=== PATIENT | female | born 1990 | race Caucasian/White ===

== ENCOUNTER 2017-01-03 19:00 | Emergency (ER) | payer MEDICAID ==
[~2017-01-03] VITALS: Ht 157.5 cm; Wt 111.1 kg
[~2017-01-03 19:00] MED LIST: MOTRIN400 MG PO; NOMEDS; OXYCODONE 5MG TA5 MG PO; PERCOCET 5/3251 EACH PO; PREDNISONE 20MG20 MG PO; PRENATAL PLUS1 TA1 PO; RANITIDINE 150150 MG PO; SENOKOT S PO; TESSALON PERLE100 M1 PO; ZITHROMAX Z PA250 MG PO
--- NOTE | 2017-01-03 19:35 | [facility] Report ---
History of Present Issue Date/Time Seen by Provider 01/03/171934 Visit Reason Pt arrived:Walked Presenting Problem:PT STATES RUNNY NOSE, CONGESTION THAT BEGAN LAST NIGHT Location if Accident: Onset of symptoms date/time:01/02/17/ or onset unknown for:MEDICAL HX UNKNOWN Have you (or family members/close friends) recently traveled outside the [place]? N If Yes, where/when: Have you had exposure to infectious disease within the past month? TB? Other? Specify: Here w/ mother c/o "I think I have a sinus cold". Rhinorrhea, nasal congestion, sneezing, watery eyes, PND, "slight" cough, tickle in throat all starting yesterday but worse today. Hx of allergies. Stopped taking zyrtec and flonase 3- 4 weeks ago "just because I wasn't having symptoms". No fever, aches, chills. Hasn't taken or tried anything for symptoms. Source patient Exam Limitations no limitations ALLERGIES Coded Allergies: Penicillins (07/06/15) amoxicillin (07/06/15) Home Medications Reported Medications RANITIDINE HCL (Ranitidine HCl) 150 MG PO BID History Medical History General CAD? No Angina: No [place]: No Hypertension? No Hyperlipidemia? No CHF? No DVT? No PE? No COPD? No Asthma? No Anemia? No GERD? No Gastric ulcers? No GI Bleed? No Hernia? No Thyroid Problems? No Hypothyroidism? No CVA? No Seizures? No Diabetes? No Renal Insuffiency? No UTI? No Stones? No BPH? No GB Disease: No Nephritic Syndrome? No Asplenia? No Hepatitis? No Sickle Cell Disease? No Arthritis? No Migraines? No Cataracts? No Glaucoma? No MRSA? No HIV? No TB? No Anxiety? No Depression? No Cancer? No Immunization HX DT/Tetanus 1-4 Years Ago Flu REFUSES Pneumonia REFUSED Surgical Hx Previous Surgery?Y APPENDECTOMY C- SECTION X2 [employer] Hx LMP 1 Week Ago Social History Smoking Hx Smoker: Former Smoker Tobacco: No Packs/day 1 1/2 - 2 Packs Alcohol Alcohol: No Review of Systems All Other Systems Reviewed and Negative Constitutional see HPI, denies malaise Eyes see HPI, denies drainage, denies pain ENT see HPI. denies: ear pain, throat swelling. Respiratory see HPI, denies shortness of breath, denies wheezing Skin denies rash Psychiatric/Neurological denies headache Physical Exam Vital Signs Vital Signs Date Time Temp Pulse Resp B/P Pulse O2 O2 Flow FiO2 Ox Delivery Rate 01/03 2001 97.9 86 18 143/105 99 01/03 1915 97.9 86 18 143/105 99 General Appearance normal appearance, no apparent distress Eye Exam - bilateral eye normal exam Ear, Nose, Throat normal ENT inspection (x/mild nasal maria teresa,boggy turbnt) Neck non-tender, supple Respiratory Status No: respiratory distress, productive cough, non productive cough. Lung Sounds anterior: lungs clear. posterior: lungs clear. bilateral: lungs clear. Cardiovascular regular rate/rhythm, no peripheral edema, no murmur Neurologic alert, oriented x 3 Mental status normal mood/affect Skin normal color, warm/dry Lymphatic no adenopathy Medical Decision Making LABS/Meds/Orders Pt receiving controlled substance in ED? No Departure Departure Time of Disposition 1956 Disposition DC Home or Self Care(routine) Clinical Impression Primary Impression: Allergic rhinitis Qualifiers: Chronicity: chronic Allergic rhinitis trigger: unspecified Allergic rhinitis seasonality: non-seasonal Qualified Code: J30.89 - Other allergic rhinitis Condition STABLE Referrals Luis Cui MD (Family) IMMEDIATELY for new or worsening symptoms OR no noticeable improvement over the next 48-72 hours. 911 for difficulty breathing or swallowing. Patient Instructions DI for Allergic Rhinitis Additional Instructions * No sign of bacterial infection. Sounds like allergies. Likely because you stopped your allergy medication. * Monitor Temp. Would not expect fevers. * Encourage fluids, water, gatorade, powerade, pedialyte if infant/toddler/child * warm salt water gargles * warm fluids * sore throat lozenges if sore throat bothersome * sleep elevated * humidifier/vaporizer * Restart your antihistamine * Restart your flonase 2 sprays each nostril daily but may take 2-3 days to notice improvement with it * Avoid known allergens Discharge Counseling Counseled pt/family regarding diagnosis, medications/RX, home care, follow up needs Prescriptions Current Visit Scripts Cetirizine Hcl (Zyrtec) 10 MG PO DAILY #30 TAB Fluticasone Propionate (Flonase 50 Mcg Nasal [place]) 2 SPRAY NA DAILY #1 BOT at 2004
[2017-01-03] MEDS ORDERED: ZYRTEC ALLERGY10 MG PO (20:00)
[2017-01-03 20:01] VITALS: BP 143/105
[2017-01-03] MEDS ORDERED: FLONASE 50 MCG16 GM (20:01)
== END 2017-01-03 20:03 | disposition home or self-care (01) ==
LOC: UTC 19:00
DX: J30.89 Other allergic rhinitis (principal); Z87.891 Personal history of nicotine dependence; Z79.899 Other long term (current) drug therapy